=== PATIENT | male | born 1940 | race African-American/Black ===

== ENCOUNTER → 2018-12-31 | Outpatient (CLI) | payer MEDICARE, OTHER ==
--- NOTE | 2018-12-31 10:16 | CARD ---
MR#: [id number] Date of Study: 12/31/2018 Ordering Physician: ZARINA TAVERAS, Referring Physician: ZARINA TAVERAS, Tech: Cleopatra Jaramillo BRIGID APPROVED REPORT EXAM: Two-dimensional and M-mode echocardiogram with Doppler and color Doppler. Other Information Quality : AverageHR: 64bpm Rhythm : NSR INDICATION History of [place] 2D DIMENSIONS RVDd3.2 (2.9-3.5cm)IVSd1.7 (0.7-1.1cm) Aortic Root(2D)3.4 (2.0-3.7cm)LVDd4.5 (3.9-5.9cm) LVOT Diameter2.3 (1.8-2.4cm)PWd1.2 (0.7-1.1cm) IVSs2.1 (0.8-1.2cm)LVDs3.5 (2.5-4.0cm) FS (%) 22.1 %PWs1.5 (0.8-1.2cm) SV42.3 mlLVEF(%)50.0 (>50%) M-Mode DIMENSIONS Left Atrium(MM)4.42 (2.5-4.0cm)Aortic Root3.55 (2.2-3.7cm) Aortic Valve AoV Peak Humza.110.0cm/sAoV VTI25.7cm AO Peak GR.4.8mmHgLVOT Peak Humza.95.4cm/s LVOT VTI 20.91cmAO Mean GR.3mmHg NUPUR (VMAX)2.55tp2IUT (VTI)3.25cm2 Mitral Valve MV E Qlzycbup66.2cm/sMV E Peak Gr.114mmHg MV DECEL ERQH128icSB A Nycyuuzv49.9cm/s MV HHC16tqF/A Ratio1.1 MVA (PHT)5.02cm2 TDI E/Lateral E'7.3E/Medial E'9.2 Pulmonary Valve PV Peak Bmlntymp959.0cm/sPV Peak Grad.5mmHg Tricuspid Valve TR P. Vtbwetfu252aq/sRAP [id number] TR Peak Gr.48dvAhKOWX45svWp LEFT VENTRICLE The left ventricle is normal size. There is mild to moderate concentric left ventricular hypertrophy. The left ventricular systolic function is normal and the ejection fraction is within normal range. T he Ejection Fraction is 55%. There is normal LV segmental wall motion. Transmitral Doppler flow patte rn is Grade II-pseudonormal filling dynamics. RIGHT VENTRICLE The right ventricle is normal size. There is normal right ventricular wall thickness. The right ventr icular systolic function is normal. Pacer lead noted in RV/RA. ATRIA The left atrium is mildly dilated. The right atrium is mildly dilated. The interatrial septum is inta ct with no evidence for an atrial septal defect or patent foramen ovale as noted on 2-D or Doppler im aging. AORTIC VALVE The aortic valve is moderately calcified. The aortic valve is trileaflet. Doppler and Color Flow reve aled no significant aortic regurgitation. There is no significant aortic valvular stenosis. MITRAL VALVE The mitral valve is thickened but opens well. There is no evidence of mitral valve prolapse. There is no mitral valve stenosis. Doppler and Color-flow revealed mild mitral regurgitation. TRICUSPID VALVE The tricuspid valve is normal in structure and function. Doppler and Color Flow revealed trace tricus pid regurgitation. The PA pressure was estimated at 38 mmHg. There is no tricuspid valve prolapse or vegetation. There is no tricuspid valve stenosis. PULMONIC VALVE Doppler and Color Flow revealed trace pulmonic valvular regurgitation. There is no pulmonic valvular stenosis. GREAT VESSELS The aortic root is normal in size. The ascending aorta is normal in size. The IVC is normal in size a nd collapses >50% with inspiration. PERICARDIAL EFFUSION There is no evidence of significant pericardial effusion. Critical Notification Critical Value: No <Conclusion> The left ventricular systolic function is normal and the ejection fraction is within normal range. Th e Ejection Fraction is 55%. There is normal LV segmental wall motion. Pacer lead noted in RV/RA. Doppler and Color Flow revealed trace tricuspid regurgitation. The PA pressure was estimated at 38 mm Hg. Signed by : Cristobal Tolliver, Electronically Approved : 12/31/2018 10:16:07
== END | disposition home or self-care (01) ==
LOC: ECHO 09:03
PROVIDERS: ATTEND Internal Medicine Cardiovascular Disease
DX: I34.0 Nonrheumatic mitral (valve) insufficiency (principal); I25.2 Old myocardial infarction
CPT/HCPCS: 93306